=== PATIENT | female | born 1945 | race Caucasian/White ===

== ENCOUNTER 2017-07-16 12:41 | Emergency (ER) | payer MEDICARE, BC ==
[2017-07-16 13:26] VITALS: BP 129/82
--- NOTE | 2017-07-16 13:49 | PCM.HP ---
H&P History of Present Illness - General Admit Problem/Dx: Question rectal bleeding Source of Information: Patient History Limitations: Reports: No Limitations - History of Present Illness Initial Comments - Free Text/Narative: Patient is a 72-year-old who is seen with question of rectal bleeding patient states that this morning she had dark black stools this is the first time and stomach through from the day before at this time and she also has long history of adhesions and gastric and intestinal perforation her grandson was concern and send her for evaluation Onset of Symptoms: Reports: Sudden Duration of Symptoms: Reports: Hour(s): Location: Reports: Abdomen Severity: Mild Improves with: Reports: None Worsens with: Reports: None Context: Reports: Other (Patient was sick yesterday with gastroenteritis) Associated Symptoms: Reports: Nausea/Vomiting (Vomited yesterday) - Related Data Allergies/Adverse Reactions: Allergies Allergy/AdvReac Type Severity Reaction Status Date / Time No Known Allergies Allergy Verified 07/16/17 12:53 Home Medications: Home Meds Dextran 70/Hypromellose [Artificial Tears] 1 drop OP BID 07/16/17 [History] L.acidoph,Paracasei, B.lactis [Probiotic] 1 each PO DAILY 07/16/17 [History] Lutein/Minerals/Vit A,C & E [Ocuvite] 1 tab PO DAILY 07/16/17 [History] Past Medical History HEENT History: Reports: Impaired Vision, Other (See Below) Other HEENT History: bleed behind right eye Gastrointestinal History: Reports: Bowel Obstruction, Diverticulosis, Irritable Bowel Syndrome Musculoskeletal History: Reports: Other (See Below) Other Musculoskeletal History: crush injury to right hand - Past Surgical History GI Surgical History: Reports: Other (See Below) Other GI Surgeries/Procedures: oct pt reports she had bowel surgery for hole in colon and intestine x 2 with wound complication/wound packing needed due to infection Female Surgical History: Reports: Hysterectomy Social & Family History - Tobacco Use Smoking Status *Q: Former Smoker Used Tobacco, but Quit: Yes Month/Year Tobacco Last Used: 10/16/2018 Second Hand Smoke Exposure: No - Caffeine Use Caffeine Use: Reports: Coffee - Recreational Drug Use Recreational Drug Use: No H&P Review of Systems - Review of Systems: Review Of Systems: See Below General: Reports: No Symptoms HEENT: Reports: No Symptoms Pulmonary: Reports: No Symptoms Cardiovascular: Reports: No Symptoms Gastrointestinal: Reports: Nausea, Vomiting, Other (Dark stools) Genitourinary: Reports: No Symptoms Musculoskeletal: Reports: No Symptoms Skin: Reports: No Symptoms Psychiatric: Reports: No Symptoms Neurological: Reports: No Symptoms Hematologic/Lymphatic: Reports: No Symptoms Immunologic: Reports: No Symptoms Exam - Exam Exam: See Below - Vital Signs Vital Signs: Last Vital Signs Temp 97.7 F 07/16/17 12:43 Pulse 76 07/16/17 13:25 Resp 16 07/16/17 12:43 BP 129/82 07/16/17 13:25 Pulse Ox 97 07/16/17 12:43 Weight: 118 lb - Exam General: Alert, Oriented, Sedated HEENT: PERRLA, Hearing Intact, Mucosa Moist & Enders, Nares Patent, Normal Nasal Septum, Posterior Pharynx Clear, Conjunctiva Clear, EOMI, EACs Clear, TMs Clear Neck: Supple, Trachea Midline, 2 Lungs: Clear to Auscultation, Normal Respiratory Effort Cardiovascular: Regular Rate GI/Abdominal Exam: Normal Bowel Sounds, Soft, Non-Tender, No Organomegaly, No Distention Rectal (Female) Exam: Normal Exam, Normal Rectal Tone, Other (dark stool Hemoccult negative hemoglobin 12.1) Extremities: Normal Inspection, Normal Range of Motion, Non-Tender, No Pedal Edema, Normal Capillary Refill Skin: Warm, Dry, Intact Neurological: Cranial Nerves Intact, Reflexes Equal Bilateral Neuro Extensive - Mental Status: Alert, Oriented x3, Normal Mood/Affect, Normal Cognition - Patient Data Lab Results Last 24 hrs: Laboratory Results - last 24 hr 07/16/17 07/16/17 Range/Units 13:10 13:10 WBC 5.5 (4.0-10.2) K/uL RBC 3.78 (3.77-5.09) M/uL Hgb 12.1 (11.7-15.5) g/dL Hct 36.7 (34.0-46.0) % MCV 97.1 (84.0-98.0) fL MCH 32.0 (28.2-33.3) pg MCHC 33.0 (31.7-36.0) g/dL RDW 12.2 (11.2-14.1) % Plt Count 253 (150-350) K/uL Neut % (Auto) 52.8 (45.0-80.0) % Lymph % (Auto) 28.1 (10.0-50.0) % [place] % (Auto) 11.6 (2.0-14.0) % Eos % (Auto) 7.3 H (0.0-5.0) % Baso % (Auto) 0.2 (0.0-2.0) % Neut # (Auto) 2.88 (1.40-7.00) K/uL Lymph # (Auto) 1.53 (0.50-3.50) K/uL [place] # (Auto) 0.63 (0.00-1.00) K/uL Eos # (Auto) 0.40 (0.00-0.50) K/uL Baso # (Auto) 0.01 (0.00-0.20) K/uL Sodium 138 (136-145) mmol/L Potassium 3.9 (3.5-5.1) mmol/L Chloride 102 (98-107) mmol/L Carbon Dioxide 28.4 (21.0-32.0) mmol/L BUN 11 (7-18) mg/dL Creatinine 1.38 H (0.51-1.17) mg/dL Est Cr Clr Drug Dosing 32.05 mL/min Estimated GFR (MDRD) 38 mL/min Glucose 107 H (74-106) mg/dL Calcium 8.9 (8.5-10.1) mg/dL Result Diagrams: 07/16/17 13:10 07/16/17 13:10 Wm Results Last 24 hrs: Microbiology 07/16/17 13:30 Stool Occult Blood (WM) - Final Stool / Feces NEGATIVE OCCULT BLOOD - Problem List (1) Gastroenteritis SNOMED Code(s): 08409578 ICD Code: K52.9 - NONINFECTIVE GASTROENTERITIS AND COLITIS, UNSPECIFIED Status: Acute Problem Details: Patient seen today hemoglobin stable rectal exam revealed dark stool negative Hemoccult at this time Problem List Initiated/Reviewed/Updated: Yes Orders Last 24hrs: Active Orders 24 hr Category Date Time Status Abdomen 2V AP Flat Upright [CR] Stat Exams 07/16/17 13:13 Ordered Assessment/Plan Comment:: Patient will be sent home on Prilosec she should see her primary in the next couple days to repeat Hemoccult and CBC to see if there is a new source of bleeding we cannot find anything x-ray showed good air patterns no free air
[2017-07-16] MEDS: Metoprolol Tartrate 5 MG/5 ML SDV IVPUSH ONE (16:35)
[2017-07-16] MEDS: Sodium Bicarbonate 8.4% 50 MEQ/50 ML Syringe IVPUSH ONE (16:35)
== END 2017-07-16 14:23 ==
LOC: LL.ED 12:41
DX: K52.9 Noninfective gastroenteritis and colitis, unspecified (principal); Z79.899 Other long term (current) drug therapy; Z87.891 Personal history of nicotine dependence; Z90.710 Acquired absence of both cervix and uterus
CPT/HCPCS: 36415; 74019; 80048; 82272; 85025; 99285

== ENCOUNTER 2017-08-25 07:49 | Day surgery (SDC) | payer MEDICARE, BC ==
[~2017-08-25 07:49] MED LIST: Lactated Ringers 1,000 ML IV SCH; Sodium Chloride 0.9% 10 ML Syringe FLUSH PRN
[2017-08-25] MEDS ORDERED: Propofol 200 MG/20 ML SDV ONE ×2 (07:59→09:06)
--- NOTE | 2017-08-25 09:12 | PCM.HPR ---
H & P Addendum review - H & P Addendum Review Date of Original H & P: 08/16/17 Date Reviewed: 08/25/17 Time Reviewed: 09:00 Patient was Examined: No Changes
--- NOTE | 2017-08-25 09:40 | PCM.OPNOTE ---
- General Post-Op/Procedure Note Date of Surgery/Procedure: 08/25/17 Operative Procedure(s): Colonoscopy Findings: Normal Pre Op Diagnosis: Hx Polyps, Heme pos Post-Op Diagnosis: Same Anesthesia Technique: MAC Primary Surgeon: Hakeem Bourgeois Complications: None Condition: Good Free Text/Narrative:: Intake & Output 08/24/17 08/25/17 08/25/17 22:59 06:59 14:59 Intake Total 500 Balance 500
[2017-08-25 10:25] VITALS: BP 172/90
--- NOTE | 2017-08-26 09:15 | OR ---
Date of Procedure: 08/25/2017 PREOPERATIVE DIAGNOSES: 1. History of colon polyps. 2. Heme-positive stool. PROCEDURE: Colonoscopy. ANESTHESIA: IV sedation. DESCRIPTION OF PROCEDURE: The patient was brought to the procedure room where she was placed on her left side and IV sedation was administered. Digital rectal exam was performed, which was normal. Colonoscope was inserted and advanced to the level of the cecum with some difficulty getting through the ascending colon, requiring pressure on the abdomen. I was able to reach the cecum which was confirmed by identifying the appendiceal lumen and. DICTATION ENDS HERE MODL ANNEMARIE LARSON MD /[id number]
--- NOTE | 2017-08-26 09:15 | OR ---
Date of Procedure: 08/25/2017 PREOPERATIVE DIAGNOSES: 1. History of colon polyps. 2. Heme positive stools. POSTOPERATIVE DIAGNOSIS: Normal colonoscopy. PROCEDURE: Colonoscopy. ANESTHESIA: IV sedation. DESCRIPTION OF PROCEDURE: The patient was brought to the procedure room, where she was placed on her left side and IV sedation administered. Digital rectal exam was performed which was normal. Colonoscope was inserted and advanced to the level of the cecum with some difficulty getting through the ascending colon, which required pressure on the abdomen. Cecum was reached and confirmed by identifying the appendiceal lumen and the ileocecal valve. Photographs were taken. Prep was good and surfaces were well visualized. Upon withdrawing the scope, the ascending, transverse, and descending colon were normal in appearance. Sigmoid colon and rectum were normal. Retroflexion was normal. Air was removed and the scope withdrawn. The patient tolerated the procedure well and returned to recovery in stable condition. Recommend routine colon screening again in 5 years. HARIS LARSON MD /[id number]
== END 2017-08-25 10:51 | disposition home or self-care (01) ==
LOC: LL.SDS 07:49
PROVIDERS: ATTEND Surgery
DX: R19.5 Other fecal abnormalities (principal); R19.4 Change in bowel habit; K58.9 Irritable bowel syndrome, unspecified; K57.30 Diverticulosis of large intestine without perforation or abscess without bleeding; I65.29 Occlusion and stenosis of unspecified carotid artery; D64.9 Anemia, unspecified; Z79.899 Other long term (current) drug therapy; Z86.010 Personal history of colon polyps
CPT/HCPCS: J2704; J7120

== ENCOUNTER 2021-01-12 06:29 | Emergency (ER) | payer MEDICARE, BC ==
[2021-01-12 06:41] VITALS: PULSE 72
[2021-01-12 07:12] LABS: ANION GAP 10.8 meq/L (7-15); CHLORIDE,CL 102 mmol/L (98-107); SODIUM,NA 136 mmol/L (136-145)
--- NOTE | 2021-01-12 07:32 | EDM.PDOC ---
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 It progressed to feeling faint. She sat down and leaned forward. She did not pass out. She was driven here to ER immediately by co-workers and felt better by the time she arrived to the ER. Once she was sitting in the ER she felt back to normal. Denies any recent other health changes, med changes, new supplements. No new stresses/life changes. Reports that she has had episodes of dizziness that have been present throughout her life. No specific cause identified. They are brief in nature, no specific triggers, and have not led to near-fainting previously. - Related Data Allergies Allergy/AdvReac Type Severity Reaction Status Date / Time No Known Allergies Allergy Verified 01/12/21 06:47 Home Meds: Home Meds Dextran 70/Hypromellose [Artificial Tears] 1 drop OP BID 07/16/17 [History] L.acidoph,Paracasei, B.lactis [Probiotic] 1 each PO DAILY 07/16/17 [History] Lutein/Minerals/Vit A,C & E [Ocuvite] 1 tab PO DAILY 07/16/17 [History] Past Medical History HEENT History: Reports: Impaired Vision, Other (See Below) Other HEENT History: bleed behind right eye Cardiovascular History: Reports: Other (See Below) (brief episodes of dizziness thoughout her life) Respiratory History: Reports: None Gastrointestinal History: Reports: Bowel Obstruction, Diverticulosis, Irritable Bowel Syndrome Other Gastrointestinal History: Hx of bowel obstruction with surgery October 2016, history of abdominal adhesions Genitourinary History: Reports: None [employer] History: Reports: , Other (See Below) Other [employer] History: Hysterectomy Musculoskeletal History: Reports: Other (See Below) Other Musculoskeletal History: crush injury to right hand Neurological History: Reports: None Psychiatric History: Reports: None Endocrine/Metabolic History: Reports: None Hematologic History: Reports: None Immunologic History: Reports: None Oncologic (Cancer) History: Reports: None Dermatologic History: Reports: None - Past Surgical History GI Surgical History: Reports: Other (See Below) Other GI Surgeries/Procedures: oct pt reports she had bowel surgery for hole in colon and intestine x 2 with wound complication/wound packing needed due to infection Female Surgical History: Reports: Hysterectomy Musculoskeletal Surgical History: Reports: Amputation, Other (See Below) Other Musculoskeletal Surgeries/Procedures:: 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 Denies: Chest Pain, Dyspnea on Exertion, Edema, Palpitations, Syncope GI/Abdominal: Reports: No Symptoms : Reports: No Symptoms Musculoskeletal: Reports: No Symptoms Skin: Reports: No Symptoms Neurological: Reports: Dizziness. Denies: Confusion, Headache, Numbness, Paresthesia, Tingling, Weakness, Change in Speech, Gait Disturbance Psychiatric: Reports: No Symptoms Hematologic/Lymphatic: Reports: No Symptoms Immunologic: Reports: No Symptoms ED EXAM, GENERAL - Physical Exam Exam: See Below Exam Limited By: No Limitations General Appearance: Alert, WD/WN, No Apparent Distress Eye Exam: Bilateral Eye: EOMI, PERRL Ears: Normal External Exam, Normal Canal, Hearing Grossly Normal Nose: No: Nasal Deformity, Nasal Swelling, Nasal Drainage Throat/Mouth: Normal Inspection, Normal Lips, Normal Voice, No Airway Compromise Head: Atraumatic, Normocephalic Neck: Normal Inspection, Supple, Non-Tender, Full Range of Motion. No: Lymphadenopathy (L), Lymphadenopathy (R) Respiratory/Chest: No Respiratory Distress, Lungs Clear, Normal Breath Sounds, No Accessory Muscle Use, Chest Non-Tender Cardiovascular: Normal Peripheral Pulses, Regular Rate, Rhythm, No Edema, No Murmur GI/Abdominal: Non-Tender (Female) Exam: Deferred Rectal (Female) Exam: Deferred Back Exam: No: CVA Tenderness (L), CVA Tenderness (R), Muscle Spasm, Paraspinal Tenderness, Vertebral Tenderness Extremities: Normal Range of Motion, Normal Capillary Refill Neurological: Alert, Oriented, CN II-XII Intact, Normal Cognition, Normal Gait, No Motor/Sensory Deficits Psychiatric: Normal Affect, Normal Mood Skin Exam: Warm, Dry, Intact, Normal Color #1 Interpretation EKG Date: 01/12/21 Time: 06:27 Rhythm: NSR Rate (Beats/Min): 69 [place]: Normal P-Wave: Present QRS: Normal ST-T: Normal QT: Normal Course - Vital Signs Last Recorded V/S: Last Vital Signs Temp 36.4 C 01/12/21 06:40 Pulse 72 01/12/21 06:40 Resp 14 01/12/21 06:40 BP 122/69 01/12/21 06:40 Pulse Ox 98 01/12/21 06:40 - Orders/Labs/Meds Orders: Active Orders 24 hr Category Date Time Status CULTURE URINE [RM] Routine Lab 01/12/21 08:46 Ordered CULTURE URINE [RM] Stat Lab 01/12/21 07:32 Received Labs: Laboratory Tests 01/12/21 01/12/21 01/12/21 Range/Units 06:32 06:40 06:40 WBC 5.4 (4.0-10.2) K/uL RBC 3.92 (3.77-5.09) M/uL Hgb 12.4 (11.7-15.5) g/dL Hct 36.6 (34.0-46.0) % MCV 93.4 D (84.0-98.0) fL MCH 31.6 (28.2-33.3) pg MCHC 33.9 (31.7-36.0) g/dL RDW 11.9 (11.2-14.1) % Plt Count 306 (150-350) K/uL Neut % (Auto) 44.6 L (45.0-80.0) % Lymph % (Auto) 33.9 (10.0-50.0) % [place] % (Auto) 14.2 H (2.0-14.0) % Eos % (Auto) 6.7 H (0.0-5.0) % Baso % (Auto) 0.6 (0.0-2.0) % Neut # (Auto) 2.40 (1.40-7.00) K/uL Lymph # (Auto) 1.82 (0.50-3.50) K/uL [place] # (Auto) 0.76 (0.00-1.00) K/uL Eos # (Auto) 0.36 (0.00-0.50) K/uL Baso # (Auto) 0.03 (0.00-0.20) K/uL Sodium 136 (136-145) mmol/L Potassium 4.0 (3.5-5.1) mmol/L Chloride 102 (98-107) mmol/L Carbon Dioxide 23.2 (21.0-32.0) mmol/L Anion Gap 10.8 (7-15) meq/L BUN 9 (7-18) mg/dL Creatinine 0.85 (0.51-1.17) mg/dL Est Cr Clr Drug Dosing 50.23 mL/min Estimated GFR (MDRD) > 60 mL/min Glucose 130 H (70-99) mg/dL POC Glucose 205 H (70-99) mg/dL Lactic Acid (0.4-2.0) mmol/L Calcium 8.5 (8.5-10.1) mg/dL Magnesium 2.1 (1.8-2.4) mg/dL Total Bilirubin 0.4 (0.2-1.0) mg/dL AST 22 (15-37) U/L ALT 17 (12-78) U/L Alkaline Phosphatase 61 (46-116) IU/L Troponin I High Sens 10 (<=51) ng/L Total Protein 7.6 (6.4-8.2) g/dL Albumin 4.0 (3.4-5.0) g/dL Specimen Type Urine Color Urine Appearance Urine pH (5.0-9.0) Ur Specific [place] (1.005-1.030) Urine Protein (NEGATIVE) mg/dL Urine Glucose (UA) (NEGATIVE) mg/dL Urine Ketones (NEGATIVE) mg/dL Urine Occult Blood (NEGATIVE) Urine Nitrite (NEGATIVE) Urine Bilirubin (NEGATIVE) Urine Urobilinogen (0.2-1.0) E.U./dL Ur Leukocyte Esterase (NEGATIVE) U Hyaline Cast (Auto) Urine RBC /HPF Urine WBC /HPF Ur Epithelial Cells /LPF Urine Bacteria (NONE TO FEW) /HPF Granular Casts (Auto) Urine Mucus (NEGATIVE) /LPF 01/12/21 01/12/21 Range/Units 06:40 07:32 WBC (4.0-10.2) K/uL RBC (3.77-5.09) M/uL Hgb (11.7-15.5) g/dL Hct (34.0-46.0) % MCV (84.0-98.0) fL MCH (28.2-33.3) pg MCHC (31.7-36.0) g/dL RDW (11.2-14.1) % Plt Count (150-350) K/uL Neut % (Auto) (45.0-80.0) % Lymph % (Auto) (10.0-50.0) % [place] % (Auto) (2.0-14.0) % Eos % (Auto) (0.0-5.0) % Baso % (Auto) (0.0-2.0) % Neut # (Auto) (1.40-7.00) K/uL Lymph # (Auto) (0.50-3.50) K/uL [place] # (Auto) (0.00-1.00) K/uL Eos # (Auto) (0.00-0.50) K/uL Baso # (Auto) (0.00-0.20) K/uL Sodium (136-145) mmol/L Potassium (3.5-5.1) mmol/L Chloride (98-107) mmol/L Carbon Dioxide (21.0-32.0) mmol/L Anion Gap (7-15) meq/L BUN (7-18) mg/dL Creatinine (0.51-1.17) mg/dL Est Cr Clr Drug Dosing mL/min Estimated GFR (MDRD) mL/min Glucose (70-99) mg/dL POC Glucose (70-99) mg/dL Lactic Acid 0.7 (0.4-2.0) mmol/L Calcium (8.5-10.1) mg/dL Magnesium (1.8-2.4) mg/dL Total Bilirubin (0.2-1.0) mg/dL AST (15-37) U/L ALT (12-78) U/L Alkaline Phosphatase (46-116) IU/L Troponin I High Sens (<=51) ng/L Total Protein (6.4-8.2) g/dL Albumin (3.4-5.0) g/dL Specimen Type Urinblad Urine Color Yellow Urine Appearance Slightly cloudy Urine pH 5.5 (5.0-9.0) Ur Specific [place] 1.020 (1.005-1.030) Urine Protein 100 H (NEGATIVE) mg/dL Urine Glucose (UA) Negative (NEGATIVE) mg/dL Urine Ketones 15 H (NEGATIVE) mg/dL Urine Occult Blood Negative (NEGATIVE) Urine Nitrite Negative (NEGATIVE) Urine Bilirubin Moderate H (NEGATIVE) Urine Urobilinogen 1.0 (0.2-1.0) E.U./dL Ur Leukocyte Esterase Large H (NEGATIVE) U Hyaline Cast (Auto) Many Urine RBC 0-5 /HPF Urine WBC >100 H /HPF Ur Epithelial Cells Moderate H /LPF Urine Bacteria Moderate H (NONE TO FEW) /HPF Granular Casts (Auto) Few Urine Mucus Moderate H (NEGATIVE) /LPF - Re-Assessments/Exams Free Text/Narrative Re-Assessment/Exam: 01/12/21 07:39 Blood sugar 205 when checked in ER Patient remained asymptomatic throughout her stay. CBC/Chem/EKG unremarkable. Blood sugar improved to 130. EKG unremarkable. Patient wishes to be discharged. Uncertain etiology for episode. Per history she has had unexplained episodes of dizziness throughout her life. Hypotension may be a factor. No history of palpitations. Plan at this time is to have patient observe for any other new symptoms/see if today's episode repeats itself. To return to ER or follow up at clinic for recheck if she re-develops problems. Patient was not able to void for UA specimen until just before discharge. Plan will be to call her if + for UTI. Patient denies any dysuria/burning/frequency/hematuria. 01/12/21 08:51 UA + for UTI. Patient contacted. Will have her return for outpatient Rocephin and will start her on Bactrim. UC pending. Departure - Departure Time of Disposition: 07:40 Disposition: Home, Self-Care 01 Condition: Good Clinical Impression: Near syncope, UTI, Urinary tract infectious disease - Discharge Information *PRESCRIPTION DRUG MONITORING PROGRAM REVIEWED*: Not Applicable *COPY OF PRESCRIPTION DRUG MONITORING REPORT IN PATIENT MICHAEL: Not Applicable Instructions: Near-Syncope Referrals: PCP,None [Primary Care Provider] - Forms: ED Department Discharge Additional Instructions: Start Bactrim BID. May need to change to different antibiotic if culture recommends a better choice. Follow up otherwise as needed for any problems/concerns. Sepsis Event Note (ED) - Evaluation Sepsis Screening Result: No Definite Risk - Focused Exam Vital Signs: Vital Signs Temp Pulse Resp BP Pulse Ox 01/12/21 06:40 36.4 C 72 14 122/69 98 - My Orders Last 24 Hours: My Active Orders 01/12/21 07:32 CULTURE URINE [RM] Stat 01/12/21 08:46 CULTURE URINE [RM] Routine - Assessment/Plan Last 24 Hours: My Active Orders 01/12/21 07:32 CULTURE URINE [RM] Stat 01/12/21 08:46 CULTURE URINE [RM] Routine
[2021-01-12 09:51] VITALS: BP 129/71
== END 2021-01-12 07:42 | disposition home or self-care (01) ==
LOC: LL.ED 06:29
DX: R55 Syncope and collapse (principal); N39.0 Urinary tract infection, site not specified; Z87.891 Personal history of nicotine dependence
CPT/HCPCS: 36415; 80053; 81001; 82947; 83605; 83735; 84484; 85025; 87086; 93010; 96372; 99284; 99284-25; J0696

== ENCOUNTER 2022-12-24 23:10 | Emergency (ER) | payer MEDICARE, BC ==
[2022-12-24 23:38] LABS: BASOPHILS ABSOLUTE AUTO 0.02 K/uL (0.00-0.20); BASOPHILS PERCENT AUTO 0.4 % (0.0-2.0); EOSINOPHILS ABSOLUTE AUTO 0.17 K/uL (0.00-0.50); EOSINOPHILS PERCENT AUTO 3.3 % (0.0-5.0); HEMATOCRIT 33.4 % (34.0-46.0); HEMOGLOBIN 11.7 g/dL (11.7-15.5); LYMPHOCYTES ABSOLUTE AUTO 2.06 K/uL (0.50-3.50); LYMPHOCYTES PERCENT AUTO 40.2 % (10.0-50.0); MEAN CORPUSCULAR HEMOGLOBIN 31.7 pg (28.2-33.3); MEAN CORPUSCULAR VOLUME 90.5 fL (84.0-98.0); MONOCYTES ABSOLUTE AUTO 0.81 K/uL (0.00-1.00); MONOCYTES PERCENT AUTO 15.8 % (2.0-14.0); NEUTROPHILS ABSOLUTE AUTO 2.06 K/uL (1.40-7.00); NEUTROPHILS PERCENT AUTO 40.3 % (45.0-80.0); PLATELET COUNT,PLT 302 K/uL (150-350); RED BLOOD CELL COUNT 3.69 M/uL (3.77-5.09); RED CELL DISTRIBUTION WIDTH 11.8 % (11.2-14.1); WHITE BLOOD CELL COUNT,WBC 5.1 K/uL (4.0-10.2)
[2022-12-24] MEDS ORDERED: Iopamidol 755 Mg/ML 100 ML Bottle IVPUSH ONE (23:47)
[2022-12-24 23:58] LABS: ALANINE AMINOTRANSFERASE,ALT 12 U/L (12-78); ALBUMIN 3.7 g/dL (3.4-5.0); ALKALINE PHOSPHATASE 64 IU/L (46-116); ANION GAP 15.2 meq/L (7-15); ASPARTATE AMNIOTRANSFERASE,AST 17 U/L (15-37); BILIRUBIN TOTAL 0.4 mg/dL (0.2-1.0); BLOOD UREA NITROGEN,BUN 7 mg/dL (7-18); CALCIUM 8.9 mg/dL (8.5-10.1); CARBON DIOXIDE,CO2 25.1 mmol/L (21.0-32.0); CHLORIDE,CL 92 mmol/L (98-107); CREATININE 0.82 mg/dL (0.51-1.17); ESTIMATED GFR 75 mL/min (>=60); GLUCOSE RANDOM 128 mg/dL (70-99); POTASSIUM,K 3.3 mmol/L (3.5-5.1); PROTEIN TOTAL,TP 7.2 g/dL (6.4-8.2); SODIUM,NA 129 mmol/L (136-145)
[2022-12-24 23:59] LABS: PROTHROMBIN TIME 9.7 SEC (9.0-11.1); PTT,PARTIAL THROMBOPLSTIN TIME 22.6 SEC (23.6-29.8)
[2022-12-25] MEDS ORDERED: Aspirin 81 MG Tab.Chew ONE (00:08)
[2022-12-25] MEDS ORDERED: Aspirin 81 MG Tab.Chew PO ONE (00:09)
[2022-12-25] MEDS: Sodium Chloride 3% 500 ML ONE ×2 (00:10→00:17)
[2022-12-25] MEDS ORDERED: Sodium Chloride 3% 500 ML IV SCH (00:10)
[2022-12-25] MEDS ORDERED: Potassium Bicarbonate/Cit Ac 20 MEQ Effervescent Tab PO ONE (00:15)
[2022-12-25] MEDS: Potassium Bicarbonate/Cit Ac 20 MEQ Effervescent Tab ONE ×2 (00:16→00:19)
[2022-12-25] MEDS ORDERED: Heparin Sodium 5,000 Units/ML Vial IVPUSH ONE (00:57)
[2022-12-25] MEDS ORDERED: Heparin Sodium/0.45% NaCl 500 ML IV SCH (01:00)
== END 2022-12-25 01:35 ==
LOC: SUPCPDRO 23:10 → LL.ED 23:10
DX: I21.4 Non-ST elevation (NSTEMI) myocardial infarction (principal); R55 Syncope and collapse; Z79.899 Other long term (current) drug therapy
CPT/HCPCS: 36415; 70450; 70496; 70498; 80053; 84484; 85025; 85610; 85730; 93005; 96361; 96365; 99285-25; A9270-GY; J1644; J7040; Q9967

== ENCOUNTER 2024-01-30 10:12 | Emergency (ER) | payer MEDICARE, BC ==
[2024-01-30] MEDS: cloNIDine 0.1 MG Tab PO ONE (10:47)
[2024-01-30 11:48] VITALS: BP 134/78; PULSE 71
== END 2024-01-30 11:30 | disposition home or self-care (01) ==
LOC: LL.ED 10:12
DX: R78.71 Abnormal lead level in blood (principal); Z90.710 Acquired absence of both cervix and uterus; Z79.899 Other long term (current) drug therapy
CPT/HCPCS: 99283; 99284; A9270-GY

== ENCOUNTER 2024-08-23 09:23 | Day surgery (SDC) | payer MEDICARE, BC ==
[~2024-08-23 09:23] MED LIST changes: -Lactated Ringers 1,000 ML IV SCH
[2024-08-23] MEDS: Lactated Ringers 1,000 ML IV SCH (09:39)
[2024-08-23] MEDS ORDERED: Midazolam 1 MG/ML 2 ML SDV ONE (10:19)
[2024-08-23] MEDS ORDERED: Propofol 200 MG/20 ML SDV ONE (10:20)
[2024-08-23 11:34] VITALS: BP 186/68; PULSE 54
== END 2024-08-23 12:00 | disposition home or self-care (01) ==
LOC: LL.SDS 09:23
PROVIDERS: ATTEND Surgery
DX: Z12.11 Encounter for screening for malignant neoplasm of colon (principal); D12.0 Benign neoplasm of cecum; K57.30 Diverticulosis of large intestine without perforation or abscess without bleeding; I10 Essential (primary) hypertension; Z79.82 Long term (current) use of aspirin; Z87.891 Personal history of nicotine dependence; Z79.899 Other long term (current) drug therapy
CPT/HCPCS: 45380; 88305; J2250; J2704; J7120